=== PATIENT | male | born 1945 | race Caucasian/White ===

== ENCOUNTER 2017-10-11 09:33 | Emergency (ER) | payer MEDICARE, BC ==
[2017-10-11 09:57] VITALS: BP 132/73
--- NOTE | 2017-10-11 10:29 | UC ---
Respiratory Complaint HPI - HPI Summary HPI Summary: 72 year old male with cough. c/o cough, congestion, and headache x 1 week. Also states left eye drainage x 3 days. has had sins pressure for over 10 days and a headache from the pressure for 4 days . has had cough for over a month. no SOB no wheeze. has had yellow discharge from nose for a few weeks . going on trip to [place] in 1 week [ End ] - History of Current Complaint Chief Complaint: UCRespiratory Stated Complaint: HEADACHE, COUGH Time Seen by Provider: 10/11/17 10:21 Hx Obtained From: Patient Onset/Duration: Gradual Onset Severity Initially: Mild Pain Intensity: 5 Character: Cough: Productive - Allergies/Home Medications Allergies/Adverse Reactions: Allergies Allergy/AdvReac Type Severity Reaction Status Date / Time nifedipine [From Procardia] Allergy Rash Verified 10/11/17 09:51 Home Medications: Home Medications Acetaminophen TAB* [Tylenol TAB*] 325 mg PO Q4H PRN 10/11/17 [History Confirmed 10/11/17] Aspirin EC TAB* [Ecotrin EC TAB*] 325 mg PO DAILY 10/11/17 [History Confirmed ] Fexofenadine/Pseudoephedrine [Kristie-D 24 Hour Tablet] 1 each PO DAILY [History Confirmed 10/11/17] Metoprolol Succinate XL TAB* [Toprol XL TAB*] 100 mg PO DAILY 10/11/17 [History Confirmed 10/11/17] Multivit-Min/Iron Fum/Folic AC [Multi Vitamin and Mineral] 1 tab PO DAILY [History Confirmed 10/11/17] Omeprazole CAP* [Prilosec CAP* 20 MG] 20 mg PO DAILY 10/11/17 [History Confirmed 10/11/17] Rosuvastatin (NF) [Crestor (NF)] 10 mg PO 1700 10/11/17 [History Confirmed 10/11] Ubidecarenone [Coq-10 Tr] 200 mg PO DAILY 10/11/17 [History Confirmed 10/11/17] PMH/Surg Hx/FS Hx/Imm Hx Previously Healthy: Yes Endocrine History: Dyslipidemia Cardiovascular History: Hypertension GI/ History: Gastroesophageal Reflux - Surgical History Surgical History: Yes Surgery Procedure, Year, and Place: TONSILLECTOMY - Family History Known Family History: Positive: None - Social History Occupation: Employed Full-time - [employer] Lives: With Family Alcohol Use: Daily Alcohol Amount: 1 glass wine Substance Use Type: None Smoking Status (MU): Former Smoker Review of Systems Constitutional: Fatigue Eyes: Drainage ENT: Nasal Discharge, Sinus Congestion Respiratory: Cough All Other Systems Reviewed And Are Negative: Yes Physical Exam Triage Information Reviewed: Yes Appearance: Well-Appearing, No Pain Distress, Well-Nourished Vital Signs: Initial Vital Signs Temp 98.5 F 10/11/17 09:49 Pulse 75 10/11/17 09:49 Resp 18 10/11/17 09:49 BP 132/73 10/11/17 09:49 Pulse Ox 98 10/11/17 09:49 Vital Signs Reviewed: Yes Eye Exam: Normal Eyes: Positive: Conjunctiva Clear ENT Exam: Normal ENT: Positive: Pharynx normal, Nasal congestion, Nasal drainage, Sinus tenderness - frontal L>R Dental Exam: Normal Neck exam: Normal Neck: Positive: 1 Respiratory Exam: Normal Cardiovascular Exam: Normal Musculoskeletal Exam: Normal Neurological Exam: Normal Psychological Exam: Normal Skin Exam: Normal UC Diagnostic Evaluation - Laboratory O2 Sat by Pulse Oximetry: 98 Respiratory Course/Dx - Differential Dx/Diagnosis Differential Diagnosis/HQI/PQRI: Bronchitis, Lower Resp Infection, Sinusitis Provider Diagnoses: sinusitis Discharge - Discharge Plan Condition: Good Disposition: HOME Prescriptions: Amoxicillin/Clavulanate TAB* [Augmentin TAB 875*] 875 mg PO BID #20 tab Patient Education Materials: Sinusitis (ED) Referrals: Timi Estrada [Primary Care Provider] - 3 Days (if needed )
== END 2017-10-11 10:50 | disposition home or self-care (01) ==
LOC: UCCORT 09:33
DX: J32.9 Chronic sinusitis, unspecified (principal); Z88.8 Allergy status to other drugs, medicaments and biological substances; K21.9 Gastro-esophageal reflux disease without esophagitis; I10 Essential (primary) hypertension; E78.5 Hyperlipidemia, unspecified; Z87.891 Personal history of nicotine dependence
CPT/HCPCS: 99212; G0463